=== PATIENT | female | born 2000 | race Caucasian/White ===

== ENCOUNTER 2024-07-01 16:48 | Emergency (ER) | payer BC, SELFPAY ==
[2024-07-01 16:52] VITALS: BP 127/76
[2024-07-01 17:14] LABS: % Basophils 0.1 % (0-2); % Immature Granulocytes 0.4 % (0-0.5); % Lymphocytes 27.7 % (20.5-51.1); % Monocytes 5.9 % (1.7-9.3); % Neutrophils 65.9 % (42.2-75.2); Absolute Immature Granulocytes 0.1 10^3/uL (0-0.05); Absolute Lymphocytes 3.4 10^3/uL (1.2-3.4); Absolute Monocytes 0.7 10^3/uL (0.1-0.6); Absolute Neutrophils 8.1 10^3/uL (1.4-6.5); Hematocrit 39.6 % (37.0-47.0); Hemoglobin 13.8 g/dL (12.0-16.0); Mean Corp Hgb Conc. 34.8 g/dL (33.0-37.0); Mean Corpuscular Hgb 30.7 pg (27.0-31.0); Mean Corpuscular Volume 88.2 fL (81.0-99.0); Mean Platelet Volume 9.1 fL (7.4-10.4); Nucleated Red Blood Cells % 0 %; Platelet Count 319 10^3/uL (130-400); Red Blood Cell Count 4.49 10^6/uL (4.20-5.40); Red Cell Dist. Width 13.2 % (11.5-14.5); White Blood Cell Count 12.2 10^3/uL (4.8-10.8)
[2024-07-01 17:26] LABS: HCG, Serum Qualitative Screen Negative
[2024-07-01 17:29] LABS: ALT (SGPT) 14 U/L (0-35); AST (SGOT) 19 U/L (14-36); Albumin 4.6 g/dl (3.5-5.0); Alkaline Phosphatase 60 U/L (38-126); Blood Urea Nitrogen 11 mg/dl (7-17); Calcium 10.2 mg/dl (8.4-10.2); Carbon Dioxide 25 mmol/L (22-30); Chloride 105 mmol/L (98-107); Glucose 94 mg/dl (70-99); Potassium 4.3 mmol/L (3.5-5.1); Sodium 137 mmol/L (135-145); Total Bilirubin 0.3 mg/dl (0.2-1.3); Total Protein 6.6 g/dl (6.3-8.2); eGFR > 60.00
[2024-07-01 17:39] LABS: Lithium 0.5 mmol/L (0.6-1.2)
--- NOTE | 2024-07-01 18:35 | ED.GENMED ---
History of Present Illness
General
Chief Complaint: Medication Reaction
Source: patient
Exam Limitations: none
Time Seen by Provider: 07/01/24 18:32
Nursing documentation reviewed up to this point in time: agreed with
History of Present Illness
History of Present Illness:
Patient is a 23-year-old female with significant past medical history including bipolar disorder with some depression anxiety presents to the ER for evaluation. Patient reports ever since she started back on her control and her Lamictal was
increased in May she has had issues being frustrated over getting her thoughts out and over feels a little dizzy. She reports when people walk by her she gets a shocking sensation in her head. She had similar symptoms when she started on
Aurovela Fe (oral control) initially in January she was on that for several months but then stopped it because of symptoms. She restarted this and believes this is again from the medication. When she is on her control her Lamictal is
increased because the control lowers the amount of Lamictal in her bloodstream. She is prescribed the control by hormone specialist for Hirsutism. Mom reports they called psychiatrist but they recommended she come to the ER.
She denies any injury fever chills headache rash joint pain nausea vomiting.
Review of Systems
Review of Systems
Allergies reviewed?: Yes
Other source history: family
All Other Systems: ROS reviewed and negative except as documented in HPI and ROS
Constitutional: Reports no symptoms; Denies fever, fatigue or chills
EENT: Reports no symptoms
Respiratory: Reports no symptoms
Cardiac: Reports no symptoms
ABD/GI: Reports no symptoms
Musculoskeletal: Reports no symptoms
Skin: Reports no symptoms; Denies rash
Neurological: Reports dizzy
Hematologic/Lymphatic: Reports no symptoms
Psychiatric: Reports no symptoms and other (feels frustrated at times when she tries to get words out.)
Phy Exam
General Physical Exam
General Presentation: no apparent distress
General age: appears stated age
General Skin: warm and dry
General Habitus: normal
General Mental: alert
General Hydration: appears well hydrated
Eye Exam
Eye Exam: PERRL, EOMI, visual alston normal and other (No nystagmus bilateral normal tracking)
Eye Exam General: PERRL: bilateral and EOM intact: bilateral
Pupil Exam: Bilateral: round and reactive
Cardiovascular Exam
Cardiovascular Exam: regular rate/rhythm, no murmur and normal peripheral pulses
Pulmonary Exam
Pulmonary Exam: lungs clear and no respiratory distress
Neurological Exam
Neurological Exam: alert, oriented x3, no motor deficits, no sensory deficits and speech normal
D[place]in Coma Scale
Eye Opening: Spontaneous
Verbal Response: Oriented
Motor Response: Obeys Commands
GCS Total Score: 15
Cerebellar
Cerebellar Function: normal finger to nose
Musculoskeletal Exam
Musculoskeletal Exam: full ROM
Skin Exam
Skin Exam: normal color and warm/dry
Psychiatric Exam
Psychiatric Exam: normal mood/affect
Course
Orders/Labs/Results
Orders:
Orders
07/01/24 16:59
Test Result ONCE
07/01/24 17:00
ECG [Electrocardiogram (*1)] Urgent
Reason for Study: Fatigue / Weakness
EKG- Treatment ONCE
07/01/24 17:07
Complete Blood Count/With Diff Urgent
Comprehensive Metabolic Panel Urgent
HCG, Serum Qualitative Screen Urgent
Schubert Urgent
Abnormal Lab Results
07/01/24
17:07
WBC 12.2 H 10^3/uL
(4.8-10.8)
Abs Immat Gran (auto) 0.1 H 10^3/uL
(0-0.05)
Absolute Neuts (auto) 8.1 H 10^3/uL
(1.4-6.5)
Absolute Monos (auto) 0.7 H 10^3/uL
(0.1-0.6)
Schubert 0.5 L mmol/L
(0.6-1.2)
07/01/24 17:07
07/01/24 17:07
Vital Signs
Initial and Last Documented VS:
Initial Vital Signs
Temp Pulse Resp BP Pulse Ox
98.2 F 70 18 127/76 99
07/01/24 16:52 07/01/24 16:52 07/01/24 16:52 07/01/24 16:52 07/01/24 16:52
Last Documented Vital Signs
Temp Pulse Resp BP Pulse Ox
98.2 F 70 18 127/76 99
07/01/24 16:52 07/01/24 16:52 07/01/24 16:52 07/01/24 16:52 07/01/24 20:50
Platen Press Operator consulted with Physician
Name of Physician Consulted: Dr Shane
MDM/Problems Addressed
MDM/Problems Addressed:
Patient is in no acute distress here tracking objects normally no deficit in vision no nystagmus stable vital signs clear speech able to converse normally and appropriately getting her words out. She has symptoms of this in the past when she was
prescribed her brand control as discussed.
She is very well-appearing and within normal neurologic exam as discussed ED physician will have patient stop her control go back to her normal rectal dose and follow-up with her hormone specialist for further management and also her
psychiatrist. Labs were checked prior to my exam white count minimally elevated however no infectious symptoms afebrile no acute distress nontoxic no meningismus looks well.
*Critical Care Note
Total Time (30-74mins, 75-104mins- exclusive of procedures): Not Applicable
ED Attending Note
-
Portions of this chart may have been created with voice recognition software.� Occasional wrong word or��sound alike� substitutions may have occurred due to the inherent limitations of voice recognition software.
Discharge Plan
Departure
Patient Disposition: Home (Routine Discharge)
Date of Disposition: 07/01/24
Time of Disposition: 21:27
Patient with high blood pressure during this ER visit?: No
Condition: Fair
Covid-19: Not Applicable
Discharge Problem:
medication reaction
Referrals:
UNKNOWN - PT DOES,NOT KNOW [Family Provider] -
Activity Restrictions/Additional Instructions:
As discussed it is likely your medication causing his symptoms as you experienced this in the past. Please stop your oral control and you may go back to your normal dose of Lamictal.
Your lithium level was 0.5 ( normal in our labs is 0.6 - 1.2 )
Follow-up with your hormone specialist who prescribes your control as well as your psychiatrist. Return however to the ER if any worsening of symptoms.
Interventions
Interventions:
*Risk Screen - Suicide Last Done: 07/01/24 16:52
*General Assessment Last Done: 07/01/24 16:52
*Neglect/Abuse Screening Last Done: 07/01/24 16:52
ED-Skin Assessment Last Done: 07/01/24 20:50
ED- Pulmonary Assessment Last Done: 07/01/24 20:50
ED- Neurological Assessment Last Done: 07/01/24 20:50
ED-EENT Assessment Last Done: 07/01/24 20:51
Discharge Date and Time
Print Language: CROATIAN
[2024-07-01 21:54] VITALS: BP 115/76
== END 2024-07-01 21:55 | disposition home or self-care (01) ==
LOC: EMR 16:48
PROVIDERS: Emergency Medicine; EMERGENCY PHYSICIAN Student in an Organized Health Care Education/Training Program
DX: R42 Dizziness and giddiness (principal); T50.905A Adverse effect of unspecified drugs, medicaments and biological substances, initial encounter; F41.9 Anxiety disorder, unspecified; F32.A Depression, unspecified; F31.9 Bipolar disorder, unspecified; Z79.899 Other long term (current) drug therapy; Z88.8 Allergy status to other drugs, medicaments and biological substances
CPT/HCPCS: 99283; 80053; 80178; 84703; 85025; 93005

== ENCOUNTER → 2024-08-12 12:03 | Outpatient (REF) | payer BC, SELFPAY | LOC: MRI 3T 12:03 | PROVIDERS: ATTENDING PHYSICIAN Orthopaedic Surgery | DX: M25.561 Pain in right knee (principal) | CPT/HCPCS: 73721 ==